=== PATIENT | male | born 1935 | race Two or more races ===

== ENCOUNTER 2024-04-26 15:11 | Emergency (ER) | payer MEDICARE, SELFPAY ==
[2024-04-26 15:26] VITALS: BP 168/82; PULSE 65; TEMP 36.4; O2SAT 99; BMI 25.7
--- NOTE | 2024-04-26 15:33 | PC.NURSE ---
pt states was scratched by his cat yesterday. Cat is up to date on vaccines. Today pt noticed increased redness and swelling to right wrist where cat scratch is. pt states up to date on tetanus.
[2024-04-26 15:55] LABS: Basophils Percent Auto 0.2 % (0.2-2.0); Eosinophils Percent Auto 0.2 % (0.9-7.0); Hematocrit 44.3 % (42.0-54.0); Immature Granulocytes Abs Auto 0.06 10^3/uL (0.00-0.03); Immature Granulocytes Pct Auto 0.5 % (0.0-0.5); Lymphocytes Absolute Auto 1.9 10^3/uL (1.2-3.8); Lymphocytes Percent Auto 15.3 % (20.5-60.0); Mean Corpuscular HGB Conc 33.9 g/dL (29.9-35.2); Mean Corpuscular Hemoglobin 31.2 pg (25.9-34.0); Mean Corpuscular Volume 92.1 fL (80.0-94.0); Mean Platelet Volume 9.3 fL (9.5-13.5); Monocytes Absolute Auto 1.1 10^3/uL (0.3-0.8); Monocytes Percent Auto 9.4 % (1.7-12.0); Neutrophils Percent Auto 74.4 % (43.0-75.0); Platelet Count 131 10^3/uL (150-450); Red Blood Count 4.81 10^6/uL (4.70-6.10); Red Cell Distribution Width 13.3 % (11.0-15.0); White Blood Count 12.1 10^3/uL (4.0-11.0)
[2024-04-26 16:15] LABS: Alanine Aminotransferase 18 U/L (16-63); Albumin Globulin Ratio 1.1; Albumin Level 3.4 g/dL (3.4-5.0); Alkaline Phosphatase 74 U/L (46-116); Anion Gap 13.2; Aspartate Amino Transferase 18 U/L (15-37); BUN Creatinine Ratio 18.1; Bilirubin Total 0.7 mg/dL (0.2-1.0); Calcium 8.8 mg/dL (8.5-10.1); Chloride 103 mmol/L (98-107); Estimated GFR (African America 59 (>=60 mL/min/1.73m^2); Estimated GFR (Non-African Ame 49 (>=60 mL/min/1.73m^2); Glucose 118 mg/dL (74-106); Potassium 4.2 mmol/L (3.5-5.1); Sodium 137 mmol/L (136-145); Total Protein 6.4 g/dL (6.4-8.2)
[2024-04-26] MEDS: AMPICILLIN SODIUM/SULBACTAM NA 3 GM in 0.9 % SODIUM CHLORIDE 100 ML IV (16:18)
[2024-04-26] MEDS: KETOROLAC TROMETHAMINE 30 MG/ML VIAL 15 MG IVP (16:19)
[2024-04-26 17:00] VITALS: BP 161/84; PULSE 80; O2SAT 97
--- NOTE | 2024-04-26 17:20 | ED_ITS ---
HPI - Skin/Abscess/Foreign Bdy General Chief complaint: Skin/Abscess/Foreign Body Stated complaint: SWOLLEN UPPER EXTREMITY, SCRATCHED BY CAT Time Seen by Provider: 04/26/24 15:34 Source: patient Mode of arrival: walk-in History of Present Illness HPI narrative: 88-year-old male who is coming to the ER after his cat scratched him, and showed that the scratches happened to the right arm he does not sure if the are only scratches and if there is also a cat bite, patient noticed that this happened last night and this morning he woke up with redness to his right arm He denies any fever or chills Related Data Home Medications ?Medication ?Instructions ?Recorded ?Confirmed finasteride 5 mg tablet 5 mg PO QAM 04/26/24 04/26/24 lisinopril 20 1 tab PO DAILY 04/26/24 04/26/24 mg-hydrochlorothiazide 25 mg tablet tamsulosin 0.4 mg capsule 0.8 mg PO QPM 04/26/24 04/26/24 Previous Rx's ?Medication ?Instructions ?Recorded amoxicillin 875 mg-potassium 1 tab PO Q12H #20 tabs 04/26/24 clavulanate 125 mg tablet azithromycin 250 mg tablet See Rx Instructions PO .COMPLEX #6 04/26/24 (Zithromax Z-Kingsley) tabs Allergies Allergy/AdvReac Type Severity Reaction Status Date / Time No Known Drug Allergies Allergy Verified 04/26/24 15:32 Review of Systems ROS Status of ROS 10 or more systems reviewed and unremark able except as noted in history and below PFSH PFSH Social History Little interest or pleasure in doing things: not at all Feeling down, depressed, or hopeless: not at all Exam Narrative Exam Narrative: Nurses notes and vital signs reviewed and patient is not hypoxic. Upper extremity: The patient erythema and warmth of the right hand mostly in the dorsum of the right hand there is multiple small scratches ranging from 1 to half millimeter, no fluctuation and no swelling, the patient also had no vascular injury detected and no active bleeding there is erythema extending almost 15 cm proximal to the wrist circumferentially General: Well-appearing and in no apparent distress. Skin: Warm, dry, no pallor noted. No rash. Head: Normocephalic, atraumatic. Neck: Supple, non-tender. Eye: Pupils are equal, round and EOMI. No scleral icterus. Constitutional Vital Signs, click to edit/add: Last Vital Signs Temp 97.5 F L 04/26/24 15:26 Pulse 80 04/26/24 17:00 Resp 18 04/26/24 17:00 BP 161/84 H 04/26/24 17:00 Pulse Ox 97 04/26/24 17:00 O2 Del Method Room Air 04/26/24 15:26 Course Vital Signs Vital signs: Vital Signs Temperature 97.5 F L 04/26/24 15:26 Pulse Rate 65 04/26/24 15:26 Respiratory Rate 16 04/26/24 15:26 Blood Pressure 168/82 H 04/26/24 15:26 Pulse Oximetry 99 04/26/24 15:26 Oxygen Delivery Method Room Air 04/26/24 15:26 Temperature 97.5 F L 04/26/24 15:26 Pulse Rate 80 04/26/24 17:00 Respiratory Rate 18 04/26/24 17:00 Blood Pressure 161/84 H 04/26/24 17:00 Pulse Oximetry 97 04/26/24 17:00 Oxygen Delivery Method Room Air 04/26/24 15:26 MDM - Skin/Abscess/Foreign Bdy MDM Narrative Medical decision making narrative: The patient CBC shows a white blood cells of 12 the chemistry was within normal and CRP of 6 the patient does not have any symptoms of systemic infection Right now with the patient was given Unasyn in the ER discharged home with Augmentin and Z-Kingslye I did moe his cellulitis and explained to him that in case of any increase of the redness or any fever he is to come back to the ER Patient also to take Tylenol for pain Tetanus status is up-to-date The patient is to follow up with primary care physician in next 2-3 days or to return to the emergency department should any of the signs or symptoms worsen or new symptoms develop. The patient agrees with the following Diagnosis and Treatment plan and the patient will be discharged home. Lab Data Labs: Lab Results 04/26/24 Range/Units 15:48 WBC 12.1 H (4.0-11.0) 10^3/uL RBC 4.81 (4.70-6.10) 10^6/uL Hgb 15.0 (14.0-18.0) g/dL Hct 44.3 (42.0-54.0) % MCV 92.1 (80.0-94.0) fL MCH 31.2 (25.9-34.0) pg MCHC 33.9 (29.9-35.2) g/dL RDW 13.3 (11.0-15.0) % Plt Count 131 L (150-450) 10^3/uL MPV 9.3 L (9.5-13.5) fL Neut % (Auto) 74.4 (43.0-75.0) % Lymph % (Auto) 15.3 L (20.5-60.0) % [place] % (Auto) 9.4 (1.7-12.0) % Eos % (Auto) 0.2 L (0.9-7.0) % Baso % (Auto) 0.2 (0.2-2.0) % Neut # (Auto) 9.0 H (1.4-6.5) 10^3/uL Lymph # (Auto) 1.9 (1.2-3.8) 10^3/uL [place] # (Auto) 1.1 H (0.3-0.8) 10^3/uL Eos # (Auto) 0.0 (0.0-0.7) 10^3/uL Baso # (Auto) 0.0 (0.0-0.1) 10^3/uL Abs Immat Gran (auto) 0.06 H (0.00-0.03) 10^3/uL Imm/Tot Granulo (auto) 0.5 (0.0-0.5) % Sodium 137 (136-145) mmol/L Potassium 4.2 (3.5-5.1) mmol/L Chloride 103 (98-107) mmol/L Carbon Dioxide 25.0 (21.0-32.0) mmol/L Anion Gap 13.2 BUN 25.0 H (7.0-18.0) mg/dL Creatinine 1.38 H (0.70-1.30) mg/dL Est GFR ( Amer) 59 L (>=60 mL/min/1.73m^2) Est GFR (Non-Af Amer) 49 L (>=60 mL/min/1.73m^2) BUN/Creatinine Ratio 18.1 Glucose 118 H (74-106) mg/dL Calcium 8.8 (8.5-10.1) mg/dL Total Bilirubin 0.7 (0.2-1.0) mg/dL AST 18 (15-37) U/L ALT 18 (16-63) U/L Alkaline Phosphatase 74 (46-116) U/L C-Reactive Protein 6.40 H (<=0.50) mg/dL Total Protein 6.4 (6.4-8.2) g/dL Albumin 3.4 (3.4-5.0) g/dL Globulin 3.0 g/dL Albumin/Globulin Ratio 1.1 Discharge Plan Discharge Chief Complaint: Skin/Abscess/Foreign Body Clinical Impression: Cellulitis, Cat scratch of forearm Patient Disposition: Home, Self-Care Time of Disposition Decision: 17:15 Condition: Good Prescriptions / Home Meds: New amoxicillin-pot clavulanate 875-125 mg tablet 1 tab PO Q12H Qty: 20 0RF azithromycin [Zithromax Z-Kingsley] 250 mg tablet See Rx Instructions .ROUTE .COMPLEX Qty: 6 0RF Rx Instructions: For 250 mg dose pack: take 500 mg today (day 1), then 250 mg for 4 days (days 2-5) No Action finasteride 5 mg tablet 5 mg PO QAM tamsulosin 0.4 mg capsule 0.8 mg PO QPM lisinopril-hydrochlorothiazide 20-25 mg tablet 1 tab PO DAILY Print Language: Croatian Instructions: Cellulitis (ED) Referrals: Physician,Non-Staff, MD [Primary Care Provider] - 1 week
== END 2024-04-26 17:27 | disposition home or self-care (01) ==
PROVIDERS: Emergency Provider Emergency Medicine
DX: S50.811A Abrasion of right forearm, initial encounter (principal); L03.113 Cellulitis of right upper limb; W55.03XA Scratched by cat, initial encounter
CPT/HCPCS: 36415; 80053; 85025; 86140; 96365; 96375; 99284; J0295; J1885